=== PATIENT | female | born 1955 | race Caucasian/White ===

== ENCOUNTER 2021-09-15 15:38 | Outpatient (CLI) | payer OTHER | END 2021-09-15 15:39 | disposition home or self-care (01) | LOC: CSHMAMMO 15:38 | PROVIDERS: ATTEND Family Medicine | DX: Z12.31 Encounter for screening mammogram for malignant neoplasm of breast (principal) | CPT/HCPCS: 77063; 77067 ==

== ENCOUNTER 2021-10-27 10:00 | Outpatient (CLI) | payer OTHER | END 2021-10-27 10:01 | disposition home or self-care (01) | LOC: CSHLAB 10:00 | PROVIDERS: ATTEND Internal Medicine Gastroenterology | DX: Z20.822 Contact with and (suspected) exposure to COVID-19 (principal); Z12.11 Encounter for screening for malignant neoplasm of colon; Z53.9 Procedure and treatment not carried out, unspecified reason ==

== ENCOUNTER 2021-11-01 05:53 | Day surgery (SDC) | payer OTHER ==
[2021-11-01] MEDS ORDERED: Lidocaine 1% MPF 2 ML VIAL ONE (06:49)
[2021-11-01] MEDS ORDERED: PROPOFOL 40 ML ONE (08:05)
== END 2021-11-01 08:59 | disposition home or self-care (01) ==
LOC: CSHSDC 05:53
PROVIDERS: ATTEND Internal Medicine Gastroenterology
PROC: 0DBC8ZZ Excision of Ileocecal Valve, Via Natural or Artificial Opening Endoscopic (ICD-10-PCS; principal; 2021-11-01)
DX: Z12.11 Encounter for screening for malignant neoplasm of colon (principal); D12.0 Benign neoplasm of cecum; K64.9 Unspecified hemorrhoids; U07.1 COVID-19; E78.5 Hyperlipidemia, unspecified; R73.03 Prediabetes; J30.9 Allergic rhinitis, unspecified; Z79.82 Long term (current) use of aspirin; Z79.899 Other long term (current) drug therapy
CPT/HCPCS: 88305; J2704

== ENCOUNTER 2024-12-30 09:01 | Outpatient (CLI) | payer MEDICARE | END 2024-12-30 09:02 | disposition home or self-care (01) | LOC: CSHMAMMO 09:01 | PROVIDERS: ATTEND Family Medicine | DX: Z12.31 Encounter for screening mammogram for malignant neoplasm of breast (principal) | CPT/HCPCS: 77063; 77067 ==